=== PATIENT | male | born 1975 | race Caucasian/White ===

== ENCOUNTER → 2016-04-27 | Outpatient (CLI) | payer BC | LOC: HEART 5 08:45 | DX: R07.9 Chest pain, unspecified (principal) | CPT/HCPCS: 78452; A9502; J2785 ==

== ENCOUNTER → 2020-03-18 | Outpatient (CLI) | payer BC | LOC: HEART 5 15:05 | DX: R00.2 Palpitations (principal) ==

== ENCOUNTER → 2021-04-29 | Outpatient (CLI) | payer BC | LOC: HEART 5 07:58 | DX: R94.31 Abnormal electrocardiogram [ECG] [EKG] (principal); I20.9 Angina pectoris, unspecified; I11.9 Hypertensive heart disease without heart failure; I45.10 Unspecified right bundle-branch block; R55 Syncope and collapse; R00.2 Palpitations; R06.02 Shortness of breath; E11.9 Type 2 diabetes mellitus without complications; I08.8 Other rheumatic multiple valve diseases; I25.2 Old myocardial infarction | CPT/HCPCS: 78452; 93306; A9502; J2785 ==